=== PATIENT | female | born 1945 | race Caucasian/White ===

== ENCOUNTER 2024-12-22 05:49 | Day surgery (SDC) | payer OTHER, BC ==
[2024-12-19 14:15] LABS: Absolute Lymphocytes (CBC) 0.8 K/uL (0.7-4.9); Hematocrit 39.9 % (36.0-45.0); Hemoglobin 13.3 g/dL (12.0-15.0); MCH 32.2 pg (27.0-35.0); MCHC 33.4 g/dL (32.0-36.0); MCV 96.5 fL (80-100); MPV 7.8 fL (7.6-11.3); Nucleated RBC Absolute Count 0.0 (0-0); Nucleated Red Blood Cells % 0.2 % (0-0); RBC Red Blood Cell Count 4.13 M/uL (3.86-4.86); White Blood Count 6.70 thou/uL (4.3-10.9)
[2024-12-19 14:19] LABS: PT Prothrombin Time 12.8 SECONDS (10-13.0); PTT, Activated Partial Thromb 31.7 SECONDS (27.2-37.4); Protime INR 1.14
[2024-12-19 14:29] LABS: ALT/SGPT 33.0 U/L (13-56); AST/SGOT 25.0 U/L (15-37); Albumin 3.7 g/dL (3.4-5.0); Albumin/Globulin Ratio 1.3 (1.1-1.8); Alkaline Phosphatase 64.0 U/L (45-117); Anion Gap 7.2 mEq/L (5.0-15.0); BUN Blood Urea Nitrogen 14.0 mg/dL (7-18); Globulin 2.9 g/dL (2.3-3.5); Glucose Level 91.0 mg/dL (74-106); Potassium 4.2 mEq/L (3.5-5.1)
[2024-12-19 14:39] LABS: White Blood Cell Scan OK (OK)
[2024-12-19 14:40] LABS: Blood Morphology Comment NOTED (NOT SEEN); Macrocytosis SLIGHT; Ovalocytes SLIGHT; Stomatocytes 1+
[2024-12-22] MEDS ORDERED: ONDANSETRON 4 MG/2 ML VIAL ONE (06:16)
[2024-12-22] MEDS ORDERED: LIDOCAINE 1% MPF 5 ML VIAL ONE (06:16)
[2024-12-22] MEDS ORDERED: MIDAZOLAM HCL 2 MG/2 ML INJ ONE (06:17)
[2024-12-22] MEDS ORDERED: FENTANYL CITR 100 MCG/2 ML ONE (06:17)
[2024-12-22] MEDS ORDERED: ROCURONIUM 50 MG/5 ML VIAL IV ONE (06:17)
[2024-12-22] MEDS: Ringers Lactate 1,000 ML IV ONE (06:32)
[2024-12-22] MEDS ORDERED: DEPO-MEDROL 40 MG/ML IM ONE (06:35)
[2024-12-22] MEDS: CEFAZOLIN SODIUM 2 GM/VIAL ONE (07:45)
[2024-12-22] MEDS: THROMBIN 5000 UNITS/VIAL TOP ONE (07:50)
[2024-12-22] MEDS ORDERED: EPHEDRINE SULF 50 MG/ML VIAL ONE (07:52)
[2024-12-22] MEDS: VANCOMYCIN 1 GM/VIAL ONE (08:01)
[2024-12-22] MEDS ORDERED: TRANEXAMIC ACID 1,000 MG/10 ML VIAL IV ONE (08:03)
[2024-12-22] MEDS ORDERED: Mastisol Adhesive Liq ONE (08:40)
[2024-12-22] MEDS: HYDROCODONE/APAP 10/325 TAB ONE (09:49)
[2024-12-22 10:50] VITALS: BP 136/59; O2SAT 95
[2024-12-22 10:51] VITALS: TEMP 98
--- NOTE | 2025-01-15 22:52 | RAD REPORT ---
EXAM: Fluoroscopy use, Fluoroscopy <1 Hour HISTORY: LUMBAR DECOMPRESSION COMPARISON: None FINDINGS: Multiple images were sent to PACS, during a fluoroscopically guided procedure. No radiologi st was involved in protocoling or performance of the study, and no radiologist was present for the duration of the procedure. No interpretation of the saved images will be provided. Total fluoroscopy time: 0.1 min. IMPRESSION: Documentation of fluoroscopy use as above. Transcribed Date/Time: 01/15/2025 10:52 PM
== END 2024-12-22 10:29 | disposition home or self-care (01) ==
LOC: OR 05:49
PROVIDERS: ATTEND Orthopaedic Surgery
PROC: 0SB20ZZ Excision of Lumbar Vertebral Disc, Open Approach (ICD-10-PCS; 2024-12-22)
PROC: 01NB0ZZ Release Lumbar Nerve, Open Approach (ICD-10-PCS; principal; 2024-12-22 07:00)
DX: M48.061 Spinal stenosis, lumbar region without neurogenic claudication (principal)
CPT/HCPCS: 85025; 36415; 85610; 85730; 83036; 80053; 63047; 63048; J2704; J2003; J3010; J3370; J1100; J2405; J7120; 76000; J1010; J2250; J3373